=== PATIENT | male | born 2000 | race Caucasian/White ===

== ENCOUNTER 2023-02-14 14:28 | Emergency (ER) | payer OTHER, SELFPAY ==
--- NOTE | ~2023-02-14 | XR_ITS ---
EXAMINATION: XR CHEST CLINICAL INFORMATION: Cough and wheezing COMPARISON: None available. TECHNIQUE: 2 views of the chest were obtained. FINDINGS: No significant abnormality is noted involving the heart, lungs, mediastinum, bony thorax or soft tissues. XR/XR chest 2V IMPRESSION: Unremarkable examination.
[2023-02-14 14:43] VITALS: BP 144/80; PULSE 131; RESP 20; TEMP 37.6; O2SAT 96; BMI 18.0
--- NOTE | 2023-02-14 14:44 | ED.SOB ---
HPI - SOB/Dyspnea General Chief Complaint: Upper Respiratory Symptoms Stated Complaint: SOB/wheezing/ chest pain Time Seen by Provider: 02/14/23 17:45 Source: patient and family Mode of arrival: ambulatory Limitations: no limitations History of Present Illness HPI Narrative: 22-year-old male presents emergency department with worsening shortness breath over the past 3 days. Told triage it has been 2 days. Patient got breathing treatments and prednisone. Patient states he is starting to feel better. Patient is any falls or injuries he denies chest pain cough patient did have negative swabs well patient does have asthma he states last time he is on prednisone several months ago. He is currently not in school or working. Related Data Previous Rx's Medication Instructions Recorded albuterol sulfate 90 mcg/actuation 1 inh inhalation Q6H PRN shortness 02/14/23 breath activated powder of breath or wheezing #1 ea inhaler,sensor prednisone 20 mg tablet 60 mg (3 x 20 mg) PO DAILY Asthma 02/14/23 5 days #15 tabs Allergies Allergy/AdvReac Type Severity Reaction Status Date / Time cat dander [CATS] Allergy Unknown ANAPHYLAXIS Verified 02/14/23 14:45 strawberry [STRAWBERRY] Allergy Unknown HIVES Verified 02/14/23 14:45 Review of Systems Review of Systems: Review of systems: General: Patient denies any fever chills recent illness or falls Musculoskeletal: Denies back pain or body aches or other injuries HEENT: denies headache, runny nose, ear pain Respiratory: shortness of breath, cough Cardiovascular: no chest pain or palpitations : denies dysuria, frequency Abdomen: no nausea vomiting denies abdominal pain Extremities: no swelling, no pain Skin: no diaphoresis Yes all other systems are reviewed and are negative Physical Exam Vital Signs: Vital Signs: Last Vital Signs Temp 99.6 F 02/14/23 14:43 Pulse 141 H 02/14/23 17:35 Resp 20 02/14/23 17:35 BP 144/80 H 02/14/23 14:43 Pulse Ox 96 02/14/23 14:43 O2 Del Method Room Air 02/14/23 14:43 BMI result Body Mass Index 18.0 General: Well-appearing well-nourished in no signs of distress HEENT: Normocephalic atraumatic Neck: No signs of JVD, no masses no tenderness or lymphadenopathy Cardiovascular: Regular rate and rhythm Respiratory: Wheezing bilaterally Abdomen: Soft nontender no masses Extremities: Normal pedal pulses no signs of edema Skin: Dry warm no rashes Back: No tenderness full ROM Course Course Course Narrative: RME - 22 yo male with history of mild intermittent asthma who presents to the ER for evaluation of SOB, wheezing, sore throat, chest pain w/ coughing for the last 2 days. Wheezing and scattered rhonchi on exam. Sats mid 90s and HR 110-120s. Nontoxic appearing, no resp distress. Plan: CXR, viral swabs, neb and prednisone Medications Administered Discontinued Medications Generic Name Dose Route Start Last Admin Trade Name Freq PRN Reason Stop Dose Admin Albuterol Sulfate 2.5 mg/ 5 mg 02/14/23 17:03 02/14/23 17:05 Albuterol Sulfate 2.5 mg INHALE 02/14/23 17:04 5 mg ONCE ONE Administration Albuterol Sulfate 5 mg/ 0 mg 02/14/23 16:44 02/14/23 16:53 Albuterol/Ipratropium 3 ml INHALE 02/14/23 16:45 5 each ONCE ONE Administration Medical Decision Making Medical Decision Making MDM Narrative: Patient looks well as ready feeling better to get breathing treatments prednisone I feel patient is safe to go home will give patient some Tessalon Perles and ibuprofen if the prednisone caking. Differential Diagnosis Differential Diagnoses: The differential diagnosis associated with the presentation includes Asthma exacerbation pneumonia viral infection Admission/Observation Consideration of admission/observation: Escalation of care including admission/observation considered Lab Data [facility] Lab Attestation statement: I reviewed the patient's lab results. Labs: Lab Results 02/14/23 Range/Units 14:50 Influenza Type A (PCR) NEGATIVE (Negative) Influenza Type B (PCR) NEGATIVE (Negative) RSV RNA Qual (PCR) NEGATIVE (Negative) SARS-CoV-2 RNA (RT-PCR) NEGATIVE (Negative) S. pyogenes GrpA MATT Negative (Negative) Independent Interpretation I performed an independent interpretation of an: Plain X-Ray Interpretation: X-ray does not show any infiltrates Radiology Impression Discussion of test interpretation with radiology: I have reviewed the radiologist's reading. Independent Historian Clinical information obtained from an independent historian. History obtained from or confirmed by: Parent External Record Review External record reviewed: Inpatient record Discharge Plan Discharge Clinical Impression: Bronchitis, Asthma exacerbation Patient Disposition: Home, Self-Care Instructions: Acute Bronchitis (ED), How to Use a Metered-Dose Inhaler and a Spacer (ED) Additional Instructions: Near seen today in emergency room for an asthma exacerbation new him some breathing treatments and prednisone. He did undergo an x-ray and swabs which were all negative. If you have worsening shortness of breath cough fever please return to the emergency department. Prescriptions: New prednisone 20 mg tablet 60 mg PO DAILY 5 Days Qty: 15 0RF albuterol sulfate 90 mcg/actuation aero powdr breath act w/sensor 1 inh inhalation Q6H PRN (Reason: shortness of breath or wheezing) Qty: 1 0RF
[2023-02-14 15:18] LABS: IDNOW Serial# 08D9AD1C; Strep A Nucleic Acid Negative (Negative)
[2023-02-14 15:38] LABS: Influenza A PCR NEGATIVE (Negative); Influenza B PCR NEGATIVE (Negative); Resp Syncy Virus RNA Qual PCR NEGATIVE (Negative); SARS COV2 PCR INHOUSE NEGATIVE (Negative)
[2023-02-14 16:53] VITALS: PULSE 114; RESP 20; O2SAT 96
[2023-02-14] MEDS: Albuterol Sulfate 5 MG, Albuterol/Iprat 2.5/0.5MG 3 ML 3 ML INHALE (16:53)
[2023-02-14] MEDS: Albuterol Sulfate 2.5 MG, Albuterol Sulfate (0.083%) 2.5 MG 5 MG INHALE (17:05)
[2023-02-14 17:35] VITALS: PULSE 141; RESP 20; O2SAT 97
[2023-02-14] MEDS: Benzonatate 100 MG CAPSULE PO (18:10)
[2023-02-14] MEDS: predniSONE 20 MG TABLET 40 MG PO (18:10)
[2023-02-14 18:12] VITALS: O2SAT 98
== END 2023-02-14 18:18 | disposition home or self-care (01) ==
PROVIDERS: Physician Assistant; Emergency Provider Student in an Organized Health Care Education/Training Program; PCP Internal Medicine
DX: J45.21 Mild intermittent asthma with (acute) exacerbation (principal); R06.02 Shortness of breath; Z20.822 Contact with and (suspected) exposure to COVID-19; Z20.828 Contact with and (suspected) exposure to other viral communicable diseases
CPT/HCPCS: 0241U; 71046; 87651; 94640; 99284; 99285